=== PATIENT | female | born 1995 | race Hispanic/Latino ===

== ENCOUNTER 2023-03-04 09:55 | Outpatient (CLI) | payer BC ==
[2023-03-04 11:41] LABS: BHCG - Serum Negative (NEGATIVE); Pregs Control Background? CLEAR/WHITE (CLR/WHITE); Pregs Control Bar Appear? YES (CONTROL BAR)
== END 2023-03-04 09:56 | disposition home or self-care (01) ==
LOC: LABBT 09:55
PROVIDERS: ATTEND Neurological Surgery
DX: Z01.818 Encounter for other preprocedural examination (principal); M51.26 Other intervertebral disc displacement, lumbar region
CPT/HCPCS: 84703; 93005; 93010

== ENCOUNTER 2023-03-08 08:13 | Day surgery (SDC) | payer BC ==
[2023-03-04 10:49] VITALS: BMI 40.7
[2023-03-08] MEDS ORDERED: Ondansetron PF 4 MG/2 ML Vial ONE ×2 (08:19→09:06)
[2023-03-08] MEDS ORDERED: LevoFLOXacin 500 mg/D5W 100 ML BAG ONE (08:37)
[2023-03-08] MEDS ORDERED: HYDROmorphone 0.5 MG/0.5 ML SYRINGE ONE (08:57)
[2023-03-08] MEDS ORDERED: fentaNYL PF 100 MCG/2 ML SYRINGE ONE (08:57)
[2023-03-08] MEDS ORDERED: Midazolam HCl 2 mg/2 ml Vial ONE (08:57)
[2023-03-08] MEDS ORDERED: SUGAMMADEX SODIUM 200 MG/2 ML VIAL ONE (08:58)
[2023-03-08] MEDS ORDERED: Clindamycin/D5W 900 mg/50 ml Premix Bag ONE (09:06)
[2023-03-08] MEDS ORDERED: Dexamethasone 20 MG/5 ML VIAL ONE (09:06)
[2023-03-08] MEDS ORDERED: Rocuronium Bromide 10 MG/ML (10ML VIAL) ONE (09:06)
[2023-03-08] MEDS ORDERED: Lidocaine 1% PF 5 ML VIAL ONE (09:06)
[2023-03-08] MEDS ORDERED: PROPOFOL 200 MG/20 ML VIAL ONE (09:06)
[2023-03-08] MEDS ORDERED: Thrombin 5000 UNITS/5 ML VIAL ONE (10:05)
[2023-03-08] MEDS ORDERED: EPINEPHrine 1 MG/ML AMP ONE (10:05)
[2023-03-08] MEDS ORDERED: Bupivacaine PF 0.5% 30 ML VIAL ONE (10:05)
[2023-03-08] MEDS ORDERED: fentaNYL 50 mcg/mL 1 mL Vial ONE (10:51)
[2023-03-08] MEDS ORDERED: HYDROcodone/Acetaminophen 5/325 mg Tablet ONE (11:23)
== END 2023-03-08 12:45 | disposition home or self-care (01) ==
LOC: SDC 08:13
PROVIDERS: ATTEND Neurological Surgery
DX: M51.26 Other intervertebral disc displacement, lumbar region (principal); F32.A Depression, unspecified; F41.9 Anxiety disorder, unspecified; Z88.0 Allergy status to penicillin; Z91.013 Allergy to seafood; Z79.899 Other long term (current) drug therapy
CPT/HCPCS: 36416; C1713; J0171; J1100; J1170; J1956; J2250; J2405; J2704; J3010; J3490; S0020